=== PATIENT | female | born 1935 | race Caucasian/White ===

== ENCOUNTER → 2017-12-24 | Outpatient (CLI) | payer MEDICARE | END | disposition home or self-care (01) | LOC: KCIC MRI 14:36 | DX: M48.061 Spinal stenosis, lumbar region without neurogenic claudication (principal); M25.78 Osteophyte, vertebrae; M12.88 Other specific arthropathies, not elsewhere classified, other specified site | CPT/HCPCS: 72148 ==

== ENCOUNTER → 2018-08-28 | Outpatient (CLI) | payer MEDICARE, BC ==
[~2018-08-28] MED LIST: AMLO10TA8 PO; ATOR20TA PO; CARV25TA2 PO; LISI1TAB5 PO; METF500T16 PO; NITR0.4T22 SL
--- NOTE | 2018-08-28 13:27 | KCIC ---
EXAM: Chest, 2 views. HISTORY: Pain COMPARISON: None. FINDINGS: 2 views the chest are obtained. There is no infiltrate, pleural effusion or pneumothorax. The heart is normal in size. IMPRESSION: No acute pulmonary finding. Electronically signed by: Georgette De La Rosa MD (08/28/2018 1:24 PM) [place] [id number]
== END | disposition home or self-care (01) ==
LOC: KCIC 12:48
PROVIDERS: ATTEND Family Medicine
DX: R07.1 Chest pain on breathing (principal)
CPT/HCPCS: 71046

== ENCOUNTER → 2020-05-23 | Outpatient (CLI) | payer MEDICARE, BC ==
[~2020-05-23] MED LIST changes: +AMLO-187 PO; -AMLO10TA8 PO; +IOHEXOL 240 MG/ML 50ML VIAL. PO ONE; +IOHEXOL 300 MG/ML 100ML VIAL. IV ONE; +LISI1TAB37 PO; -LISI1TAB5 PO
--- NOTE | 2020-05-23 15:11 | KCIC ---
CT scan abdomen and pelvis with contrast 05/23/2020 CLINICAL HISTORY: History of diarrhea for 3 months. TECHNIQUE: After the oral and intravenous administration of contrast, contiguous, 5 mm axial sections were obtained through abdomen and pelvis. 100 cc of Omnipaque 300 were administered intravenously during this examination. One or more of the following individualized dose reduction techniques were utilized for this study: 1. Automated exposure control. 2. Adjustment of the mA and/or kV according to patient size. 3. Use of iterative reconstruction technique. FINDINGS: Comparison study is dated 11/21/2015. Images through the lung bases demonstrate mild cardiomegaly. Images through the lung bases demonstrate minimal dependent subsegmental atelectasis bilaterally. The liver parenchyma has a decreased attenuation consistent with fatty infiltration. Rounded low-attenuation lesions are seen involving both lobes of the liver consistent with hepatic cysts. These measure 5 mm to 1.5 cm in size. The spleen, pancreas, adrenal glands and kidneys are within normal limits. Atherosclerotic calcification of the abdominal aorta is seen. The abdominal aorta tapers normally. The gallbladder is not visualized consistent with a cholecystectomy. There is a small sliding hiatal hernia. A small fat-containing ventral hernia is seen which measures 4.4 cm transverse dimension. There is no evidence of bowel obstruction. No free fluid or free air is seen. The appendix is well-visualized and is within normal limits. Images through the pelvis demonstrate the urinary bladder distended with urine. The uterus is atrophic. No adnexal mass is seen. Calcifications are seen within the pelvis consistent with phleboliths. Multiple diverticula are seen involving the sigmoid colon. No inflammatory changes are seen in the adjacent fat. No free fluid is noted. Mild S-shaped curvature of the thoracolumbar spine is seen. Degenerative changes are seen involving the lower thoracic and throughout the lumbar spine along with both hips. IMPRESSION: No acute abnormality is seen. Electronically signed by: Uriel Caal MD (05/23/2020 3:08 PM) [id number]
== END ==
LOC: KCIC CT 12:29
PROVIDERS: ATTEND Internal Medicine Gastroenterology
DX: K57.30 Diverticulosis of large intestine without perforation or abscess without bleeding (principal); N32.89 Other specified disorders of bladder; N85.8 Other specified noninflammatory disorders of uterus; M16.0 Bilateral primary osteoarthritis of hip; I87.8 Other specified disorders of veins; M47.815 Spondylosis without myelopathy or radiculopathy, thoracolumbar region
CPT/HCPCS: 74177; 82565; Q9966; Q9967

== ENCOUNTER → 2020-08-03 | Outpatient (CLI) | payer MEDICARE, BC ==
[~2020-08-03] MED LIST changes: +ASPI-630 PO; +COLE1TAB PO; +ESCITALOPRAM OX10 MG PO; -IOHEXOL 240 MG/ML 50ML VIAL. PO ONE; -IOHEXOL 300 MG/ML 100ML VIAL. IV ONE; +LEVO50TA5 PO
== END ==
LOC: LAB 10:23
PROVIDERS: ATTEND Internal Medicine Gastroenterology
DX: Z01.812 Encounter for preprocedural laboratory examination (principal); Z20.822 Contact with and (suspected) exposure to COVID-19; R19.7 Diarrhea, unspecified
CPT/HCPCS: U0003

== ENCOUNTER → 2020-08-05 | Day surgery (SDC) | payer MEDICARE, BC ==
[~2020-08-05] MED LIST changes: +IV RINGERS,LACTATED 1000ML 1,000 ML IV SCH; +LIDOCAINE 2% PF 5 ML VIAL. ONE; +PROPOFOL 10 MG/ML (20ML) VIAL. IV ONE
[2020-08-05 09:51] VITALS: BP 124/50
--- NOTE | 2020-08-05 12:29 | CONS ---
DATE OF CONSULTATION: 08/05/2020 REASON FOR CONSULTATION: Diarrhea. HISTORY OF PRESENT ILLNESS: An 85-year-old female with past medical history which is significant for hypertension, hyperlipidemia, hypothyroidism, diabetes, is seen for persistent diarrhea, loose and watery associated with incontinence of stool urgency and a 3-month duration of symptoms. She is on metformin 500 mg daily. Of note, previous stool studies were negative. No travel, antibiotics and/or well water consumption. Prior cholecystectomy is also elicited. She has been on bile acid sequestrants without improvement. Family history is unrevealing for inflammatory bowel disease, celiac disease and/or colon cancer. She has up to 4 loose stools daily with continued issues, requests further evaluation. PAST MEDICAL HISTORY: Significant for hypertension, hyperlipidemia, hypothyroidism and diabetes. ALLERGIES: PENICILLIN and PHENOBARBITAL. MEDICATIONS: Include amlodipine, aspirin, atorvastatin, carvedilol, colestipol, citalopram, levothyroxine, lisinopril, hydrochlorothiazide, metformin and nitroglycerin. PAST SURGICAL HISTORY: Status post back surgery, eye surgery, gallbladder surgery, bilateral knees and tonsillectomy. SOCIAL HISTORY: Nondrinker and nonsmoker at this time. FAMILY HISTORY: Noncontributory except for GA with her father and CVA with her father, hypertension with her mother. REVIEW OF SYSTEMS: Per records. PHYSICAL EXAMINATION: GENERAL: Reveals a well-nourished, well-developed female who is alert, cooperative, in no acute distress. VITAL SIGNS: Temperature is 98, pulse 85 and respiratory rate 18. LUNGS: Clear. CARDIOVASCULAR: Reveals an S1, S2 without S3, S4 or appreciable murmur. ABDOMEN: Reveals a soft abdomen, normal bowel sounds, without appreciable hepatosplenomegaly. EXTREMITIES: Reveals no cyanosis, clubbing or edema. IMPRESSION AND PLAN: Diarrhea, etiology is to be determined. Differential includes drug-induced diarrhea, collagenous colitis, IBS, IBD, colon cancer, celiac disease, pancreatic insufficiency and/or diverticular stricture. Therefore, recommend upper endoscopy and colonoscopy. Risks and benefits have been previously discussed. The patient is willing to proceed at this time. WILLA PAVON MD DR: ANNA/nav JOB#: [id number] / [id number]
--- NOTE | 2020-08-09 15:09 | PATHOLOGY ---
[facility] Accession Number: [id number] . 01 Material submitted: . PART A: duodenum - DUODENAL BX R/O CELIAC PART B: colon - RANDOM COLON . 01 Clinical history: . DIARRHEA DUODENITIS, DIVERTICULOSIS . 02 Diagnosis: A. Duodenal biopsies: - No significant pathologic abnormalities. . B. Colonic mucosa, random colon biopsies: - Collagenous colitis. ([facility] 08/09/2020) [facility] 08/09/2020 1012 Local . 02 Comment: Sections of the duodenal biopsy reveal segments of duodenal and small intestine mucosa. Where best oriented, mucosal villi show no sprue-like changes or significant inflammatory changes. . Sections of the random colon biopsy reveal multiple segments of colonic mucosa showing a mild chronic active colitis without crypt architectural distortion. There are foci of collagen deposition around the absorptive capillary complex beneath the surface epithelium consistent with collagenous colitis. There is no evidence of a chronic destructive colitis. ([facility]PM:[facility] 08/09/2020) . 02 Electronically signed: . Daniel Mcgee MD, Pathologist NPI- [id number] . 01 Gross description: . A. The specimen is received in formalin, labeled "Betsy White, duodenal biopsy, R/O celiac". Received are multiple segments of pale rae soft tissue ranging in size from 0.3 to 0.6 cm in maximum dimensions. The specimen is submitted entirely in cassette A1. . B. The specimen is received in formalin, labeled "Betsy White, random colon biopsy". Received are multiple segments of pale rae soft tissue ranging in size from 0.3 to 1.0 cm in maximum dimensions. The specimen is submitted entirely in cassette B1. ([facility]; 08/08/2020) [facility] 08/08/2020 1057 Local . 02 Pathologist provided ICD-10: K52.831 . 02 CPT . 596626, [id number] Specimen Comment: A courtesy copy of this report has been sent to [phone] Specimen Comment: Report sent to Performed at: [address] [facility], [place] [id number] MD Krishna Stewart MD Phone: [phone] Performed at: [facility] [address] [place] [id number] MD Daniel Mcgee MD Phone: [phone]
== END | disposition home or self-care (01) ==
LOC: SURG 07:36
PROVIDERS: ATTEND Internal Medicine Gastroenterology
DX: R19.7 Diarrhea, unspecified (principal); K51.80 Other ulcerative colitis without complications; K64.0 First degree hemorrhoids; K57.30 Diverticulosis of large intestine without perforation or abscess without bleeding; K29.80 Duodenitis without bleeding; K29.70 Gastritis, unspecified, without bleeding; K21.9 Gastro-esophageal reflux disease without esophagitis; K31.89 Other diseases of stomach and duodenum; K63.89 Other specified diseases of intestine; K44.9 Diaphragmatic hernia without obstruction or gangrene; I10 Essential (primary) hypertension; I25.10 Atherosclerotic heart disease of native coronary artery without angina pectoris; E78.5 Hyperlipidemia, unspecified; F32.9 Major depressive disorder, single episode, unspecified; M19.90 Unspecified osteoarthritis, unspecified site; Z79.82 Long term (current) use of aspirin; Z79.899 Other long term (current) drug therapy; Z95.5 Presence of coronary angioplasty implant and graft; Z98.890 Other specified postprocedural states; Z88.0 Allergy status to penicillin; Z88.8 Allergy status to other drugs, medicaments and biological substances; Z90.49 Acquired absence of other specified parts of digestive tract
CPT/HCPCS: 43239; 45380; J2704; 88305